=== PATIENT | female | born 1995 | race American Indian/Alaskan Native ===

== ENCOUNTER 2021-10-26 00:55 | Emergency (ER) | payer OTHER ==
[2021-10-26 03:29] LABS: Basophils % (Auto) 0.5 % (0.0-1.8); Eosinophils # (Auto) 0.1 K/mm3 (0.0-0.4); Eosinophils % (Auto) 0.7 % (0.0-4.3); Hematocrit 31.8 % (35.5-45.6); Hemoglobin 10.4 gm/dl (11.8-15.2); Lymphocytes # (Auto) 2.4 K/mm3 (1.2-5.4); Lymphocytes % (Auto) 24.7 % (13.4-35.0); Mean Corpuscular HGB Conc 33 % (32-34); Mean Corpuscular Volume 84 fl (84-94); Monocytes # (Auto) 0.9 K/mm3 (0.0-0.8); Monocytes % (Auto) 9.3 % (0.0-7.3); Platelet Count 365 K/mm3 (140-440); Red Blood Count 3.78 M/mm3 (3.65-5.03); Red Cell Distribution Width 14.5 % (13.2-15.2)
[2021-10-26 03:44] LABS: Blood Urea Nitrogen 5 mg/dL (7-17); Calcium 8.9 mg/dL (8.4-10.2); Hemolysis Index 6
--- NOTE | 2021-10-26 03:48 | Emergency Department Report ---
HPI - General Chief Complaint: Vaginal Bleeding Time Seen by Provider: 10/26/21 02:43 - HPI HPI: 26-year-old G6, P2 female at 5 months gestation based on first trimester ultrasound presents via EMS after a spontaneous miscarriage. Patient states that she has had vaginal bleeding for the past month. She has visited the hospital multiple times for this and was sent home with the diagnosis of threatened miscarriage. Today she says she was in her normal state of health and then began to have lower abdominal/pelvic cramping for approximately 2 hours. The pain became severe and 911 was called. She expelled a fetus and placenta along with blood and blood clots. At present she has some mild lower abdominal pain but no other physical symptoms or complaints. She does say that her children are sick at home with COVID-19. She is not vaccinated against COVID-19. She denies URI symptoms currently. The patient follows with [facility]. She denies any associated fever/chills, headache, chest pain, shortness of breath, nausea/vomiting, dysuria, back pain, focal weakness, sensory changes, or any other complaints. ED Past Medical Hx - Past Medical History Previous Medical History?: No Additional medical history: 5 PAR 3 - Surgical History Past Surgical History?: No ED Review of Systems ROS: Stated complaint: VAGINAL BLEEDING Other details as noted in HPI Constitutional: denies: chills, fever Eyes: denies: eye pain, vision change ENT: denies: throat pain, congestion Respiratory: denies: cough, shortness of breath Cardiovascular: denies: chest pain, syncope Gastrointestinal: abdominal pain. denies: nausea, vomiting Genitourinary: denies: dysuria, frequency Musculoskeletal: denies: back pain, arthralgia Skin: denies: rash, lesions Neurological: denies: headache, weakness, numbness Hematological/Lymphatic: denies: easy bleeding Physical Exam - Physical Exam Physical Exam: GENERAL: Well developed and well nourished. No acute distress HEAD: Normocephalic. No obvious signs of trauma. ENT: Moist mucous membranes. EYES: Extraocular movements are intact. Pupils are equal round and reactive to light bilaterally NECK: Supple. Full ROM is intact. Trachea is midline. LUNGS: Nonlabored breathing. Equal chest rise bilaterally. Clear to auscultation bilaterally. CARDIOVASCULAR: Regular rate and rhythm. No murmurs or rubs. VASCULAR: Cap refill < 2 seconds ABDOMEN: Abdomen is soft and nondistended. There is no significant tenderness, guarding or rebound. GENITOURINARY: Pelvic exam performed with ADIA Ulloa present as a fondant cooker. Normal appearing vaginal mucosa. There is blood and blood clots pooling in the posterior fornix which was observed with gauze and removed using ring forceps. The os is open with no visible products of conception. SKIN: Skin is warm and dry NEURO: Patient is awake, alert, and oriented. firebrick layer helper II-XII grossly intact. No focal deficits. Normal motor and sensory exam throughout. Normal speech. MUSCULOSKELETAL: No obvious deformities. No significant tenderness. Normal ROM throughout. BACK/SPINE: No costovertebral angle tenderness. ED Medical Decision Making - Lab Data Result diagrams: 10/26/21 03:04 10/26/21 03:04 - Radiology Data Radiology results: report reviewed - Medical Decision Making 26-year-old female at 5 months gestation brought in by EMS after spontaneous miscarriage. Patient has been experiencing vaginal bleeding for 1 month and today had 2 hours of pelvic cramping followed by expulsion of fetus and placenta along with blood and blood clots. The fetus and placenta have been collected in a basin and are present at the bedside. She is afebrile and with normal vital signs. Physical examination reveals no significant abdominal or pelvic tenderness. Pelvic exam was performed with nurse Ulloa present as a chape kenny and blood clots were removed revealing no products of conception. She does not know her Rh status. We will obtain type/screen and basic labs and obtain pelvic ultrasound to assess for evidence of retained products of conception. We will continue to monitor the patient closely. Products of conception including fetus and placenta will be sent to pathology. Labs reveal no significant leukocytosis or anemia. Hemoglobin is 10.4. Patient is Rh+. Pelvic ultrasound reveals expectedly enlarged uterus with no evidence of retained products of conception. Patient will be discharged with instructions to follow-up with her [facility] within the next week. She was given strict return precautions. All this was discussed with the patient who expressed understanding and agreement with the plan of care. Critical care attestation.: If time is entered above; I have spent that time in minutes in the direct care of this critically ill patient, excluding procedure time. ED Disposition Clinical Impression: Spontaneous Disposition: HOME / SELF CARE / HOMELESS Is pt being admited?: No Condition: Stable Instructions: Miscarriage, Managing Loss Additional Instructions: Please follow-up with your TOSSER in the next several days. Return to the emergency department should you develop significantly worsening bleeding or for any other new health concerns. Referrals: [facility] [Provider Group] - 3-5 Days
[2021-10-26 03:50] LABS: BUN/Creatinine Ratio 8
[2021-10-26] MEDS ORDERED: KETOROLAC 30 MG/1 ML INJ IM ONE (04:10)
--- NOTE | 2021-10-26 05:36 | Ultrasound Report ---
ULTRASOUND PELVIS INDICATION / CLINICAL INFORMATION: eval for retained POC s/p miscarriage. TECHNIQUE: Transabdominal. Duplex Color Doppler used: Yes. COMPARISON: None available FINDINGS: UTERUS: The uterus is enlarged as would be expected in this patient. The uterus measures 1 6.3 x 7.0 x 10.9 cm. The endometrium is prominently thickened and somewhat heterogeneous in appearanc e. Endometrial stripe measures 2.2 cm. There is no vascularity associated with the endometrium. The a ppearance is more suggestive of hemorrhage within the endometrium rather than retained products of co nception. RIGHT ADNEXA: No significant ovarian cyst or mass. Normal color Doppler blood flow. LEFT ADNEXA: No significant ovarian cyst or mass. Normal color Doppler blood flow. FREE FLUID: None. ADDITIONAL FINDINGS: None. IMPRESSION: 1. uterus. The endometrium is thickened and slightly heterogeneous, measuring 2.2 cm in th ickness. However there is no discrete mass or focus of abnormal vascularity within the endometrium to suggest presence of retained products of conception. Signer Name: Donna Jeronimo MD Signed: 10/26/2021 5:32 AM Workstation Name: [id number]
[2021-10-26 06:12] VITALS: BP 116/78
== END 2021-10-26 06:12 | disposition home or self-care (01) ==
LOC: EDSEX → ED 00:55
DX: O03.9 Complete or unspecified spontaneous abortion without complication (principal); Z3A.20 20 weeks gestation of pregnancy
CPT/HCPCS: 36415; 76856; 80048; 85025; 86850; 86900; 86901; 96372; 99284; J1885